=== PATIENT | male | born 1955 | race Two or more races ===

== ENCOUNTER 2025-03-19 07:06 | Inpatient (IN) | payer BC, MEDICARE ==
[~2025-03-19] VITALS: Ht 180.3 cm; Wt 119.8 kg
[2025-03-19] MEDS: LACTATED RINGER'S 2,250 ML IV ONE (07:41)
--- NOTE | 2025-03-19 07:48 | ED.PDOC ---
History of Present Illness HPI Comments 69-year-old male who presents to the ER with prior medical history of hypertension; surgical history of appendectomy and a chief complain of shortness a breath. Patient reports on having sore throat, headache, cough with yellow phlegm, gen weak, loss of appetite for the past one week. Patient reports on small ving similar symptoms in the past and was given medication for it. Patient has a blood pressure of 85/53 and is saturating at 93% on room air. Patient notes that he does live in [place]. Denies chills, fever, N/V/D, CP. No other associated symptoms, modifiers, recent injuries or sick contacts present at this time. Chief Complaint: Shortness of Breath Time Seen by MD: 07:30 Reviewed Notes: Nurses Notes, Medications, Allergies Allergies: Coded Allergies: NO KNOWN ALLERGIES (Unverified , 03/19/25) Information Source: Patient Mode of Arrival: Ambulatory Severity: Moderate Timing: Days Duration: Since onset, Days Prehospital treatment: None Past Medical History PAST MEDICAL HISTORY: High Lipids, HTN Surgical History: Appendectomy Family History Family History: Reviewed,noncontributory to illness, Unknown Social History Smoker: Non-Smoker Alcohol: Denies ETOH Use Drugs: Denies Drug Use Lives In: Home Constitutional: reports: weakness; denies: chills, diaphoresis, fatigue, fever, malaise, sweats, others EENTM: reports: throat swelling; denies: blurred vision, double vision, ear bleeding, ear discharge, ear drainage, ear pain, ear ringing, eye pain, eye redness, hearing loss, mouth pain, mouth swelling, nasal discharge, nose bleeding, nose congestion, nose pain, photophobia, tearing, throat pain, voice changes, others Respiratory: reports: cough, shortness of breath; denies: hemoptysis, orthopnea, SOB at rest, SOB with excertion, stridor, wheezing, others Cardiovascular: denies: chest pain, dizzy spells, diaphoresis, Dyspnea on exertion, edema, irregular heart beat, left arm pain, lightheadedness, palpitations, PND, syncope, others Gastrointestinal: denies: abdomen distended, abdominal pain, blood streaked bowels, constipated, diarrhea, dysphagia, difficulty swallowing, hematemesis, melena, nausea, poor appetite, poor fluid intake, rectal bleeding, rectal pain, vomiting, others Genitourinary: denies: burning, dysuria, flank pain, frequency, hematuria, incontinence, penile discharge, penile sore, pain, testicle pain, testicle swelling, urgency, others Neurological: reports: headache; denies: dizziness, fainting, left sided numbness, left sided weakness, numbness, paresthesia, pre-existing deficit, right sided numbness, right sided weakness, seizure, speech problems, tingling, tremors, weakness, others Musculoskeletal: denies: back pain, gout, joint pain, joint swelling, muscle pain, muscle stiffness, neck pain, others Integumetry: denies: bruises, change in color, change in hair/nails, dryness, laceration, lesions, lumps, rash, wounds, others Allergic/Immunocompromised: denies: Difficulty Healing, Frequent Infections, Hives, Itching, others Hematologic/Lymphatic: denies: anemia, blood clots, easy bleeding, easy bruising, swollen glands, others Endocrine: denies: excessive hunger, excessive sweating, excessive thirst, excessive urination, flushing, intolerance to cold, intolerance to heat, unexplained weight gain, unexplained weight loss, others Psychiatric: denies: anxiety, bipolar disorder, depression, hopeless, panic disorder, schizophrenia, sleepless, suicidal, others All Other Systems: Reviewed and Negative Physical Exam General Appearance: No Apparent Distress, Normal HEENT: Normal ENT Inspection, Pharynx Normal, TMs Normal Neck: Full Range of Motion, Non-Tender, Normal, Normal Inspection Respiratory: Chest Non-Tender, Lungs Clear, No Accessory Muscle Use, No R espiratory Distress, Normal Breath Sounds Cardiovascular: No Edema, No JVD, No Murmur, No Gallop, Normal Peripheral Pulses, Regular Rate/Rhythm Breast Exam: Deferred Gastrointestinal: No Organomegaly, Non Tender, No Pulsatile Mass, Normal Bowel Sounds, Soft Genitalia: Deferred Pelvic: Deferred Rectal: Deferred Extremities: No calf tenderness, Normal capillary refill, Normal inspection, Normal range of motion, Non-tender, No pedal edema Musculoskeletal : Apperance: Normal Neurologic: Alert, first assistant II-XII nml as Tested, No Motor Deficits, Normal Affect, Normal Mood, No Sensory Deficits Cerebellar Function: Normal Reflexes: Normal Skin: Dry, Normal Color, Warm Lymphatic: No Adenopathy Was a procedure done? Was a procedure done?: No EKG EKG : Pulse Rate (adult): 99 Ferguson: Normal Cardiac Rhythm: NSR Block: None Hypertrophy: None ST: Normal Differential Dx Considerations may include: Viral syndrome, ACS, pneumonia, urinary tract infection X-Ray, Labs, Meds, VS Vital Signs Date Time Temp Pulse Resp B/P (MAP) Pulse Ox O2 Delivery O2 Flow Rate FiO2 03/19/25 09:10 99 03/19/25 08:48 85 03/19/25 07:26 Room Air* 0 21 03/19/25 07:25 61/45 (50) 03/19/25 07:24 97.2 99 16 68/39 (49) 97 97.2 03/19/25 07:20 99 03/19/25 07:19 97.2 99 16 68/39 (49) 97 97.2 Lab Test 03/19/25 07:53 Range/Units White Blood Count 10.0 4.4-10.8 10^3/uL Red Blood Count 4.25 L 4.5-5.90 10^6/uL Hemoglobin 13.0 L 13.5-17.5 g/dL Hematocrit 37.4 L 41.0-53.0 % Mean Corpuscular Volume 88.1 80.0-100.0 fL Mean Corpuscular Hemoglobin 30.6 28.0-32.0 pg Mean Corpuscular Hemoglobin Concent 34.7 32.0-36.0 g/dL Red Cell Distribution Width 13.0 11.8-14.3 % Platelet Count 442 140-450 10^3/uL Mean Platelet Volume 8.5 6.9-10.8 fL Neutrophils (%) (Auto) 73.0 37.0-80.0 % Lymphocytes (%) (Auto) 12.3 10.0-50.0 % Monocytes (%) (Auto) 13.0 H 0.0-12.0 % Eosinophils (%) (Auto) 1.3 0.0-7.0 % Basophils (%) (Auto) 0.4 0.0-2.0 % Neutrophils # (Auto) 7.3 1.6-8.6 10 ^3/uL Lymphocytes # (Auto) 1.2 0.4-5.4 10 ^3/uL Monocytes # (Auto) 1.3 0-1.3 10 ^3/uL Eosinophils # (Auto) 0.1 0-0.8 10 ^3/uL Basophils # (Auto) 0 0-0.2 10 ^3/uL Nucleated Red Blood Cells 0.0 % Prothrombin Time 11.0 9.3-11.8 sec Prothrombin Time INR 1.04 0.9-1.15 Activated Partial Thromboplast Time 26.8 24.5-34.5 SEC Sodium Level 138 136-145 mmol/L Potassium Level 3.1 L 3.5-5.1 mmol/L Chloride Level 95 L 98-107 mmol/L Carbon Dioxide Level 28 20-31 mmol/L Anion Gap 15 5-15 Blood Urea Nitrogen 37 H 9-23 mg/dL Creatinine 2.61 H 0.700-1.30 mg/dL Glomerular Filtration Rate Calc 26 >90 mL/min BUN/Creatinine Ratio 14.2 10.0-20.0 Serum Glucose 188 H 74-106 mg/dL Lactic Acid Level 2.5 *H 0.4-2.0 mmol/L Calcium Level 10.1 8.7-10.4 mg/dL Total Bilirubin 0.8 0.2-1.0 mg/dL Aspartate Amino Transferase (AST) 22 13-40 U/L Alanine Aminotransferase (ALT) 30 7-40 U/L Alkaline Phosphatase 158 H 46-116 U/L Total Protein 8.3 H 5.7-8.2 g/dL Albumin 4.8 3.2-4.8 g/dL Current Medications Medications (Trade) Dose Ordered Sig/Gabriela Route Start Time Stop Time Status Last Admin Lactated Ringer's 2,250 ml @ 2,250 mls/hr ONCE ONCE IV 03/19/25 07:45 03/19/25 08:44 DC 03/19/25 07:41 Vancomycin HCl 200 ml @ 200 mls/hr ONCE ONCE IV 03/19/25 07:45 03/19/25 08:44 DC 03/19/25 09:02 Time of 1ST Reevaluation: 08:00 Reevaluation 1ST: Unchanged Patient Education/Counseling: Diagnosis, Treatment, Prognosis Family Education/Counseling: No Family Present Sepsis Sepsis Reasesment Focused Exam Orders: Laboratory Tests 03/19/25 07:53: Lactic Acid Level 2.5 Departure 1 Departure Time of Disposition: 09:25 (Patient presents with weakness, hypotension, and generally feeling unwell. We will treat patient with fluids empirically cover patient with antibiotics and admit patient for further workup. After patient's initial fluid bolus patient's blood pressures improved.) Impression: Primary Impression: Shortness of breath Additional Impression: Suspected sepsis Disposition: ADMITTED INPATIENT Admit to: Med Surg Condition: Guarded Critical Care Note Critical Care Time?: Yes Critical care comment: Hypotension Authorized and Performed by: Ashley Tsai MD Total critical care time: Approximately 44 minutes Due to a high probability of clinically significant, life threatening deterioration, the patient required my highest level of preparedness to intervene emergently and I personally spent this critical care time directly and personally managing the patient. This critical care time included obtaining a history; examining the patient; pulse oximetry; ordering and review of studies; arranging urgent treatment with development of a management plan; evaluation of patient's response to treatment; frequent reassessment; and, discussions with other providers. This critical care time was performed to assess and manage the high probability of imminent, life-threatening deterioration that could result in multi-organ failure. It was exclusive of separately billable procedures and treating other patients and teaching time. Please see my other sections and the rest of the note for further information on patient assessment and treatment. Stability Stability form required: No I personally scribed for ASHLEY TSAI MD ([email or web address]) on 03/19/25 at 07:48. Electronically submitted by Luis Savage ([employer]). I personally scribed for ASHLEY TSAI MD ([email or web address]) on 03/19/25 at 09:10. Electronically submitted by Luis Savage ([employer]). ASHLEY TSAI MD Mar 19, 2025 07:48
[2025-03-19 08:06] LABS: Basophils # (auto) 0 10 ^3/uL (0-0.2); Basophils % (auto) 0.4 % (0.0-2.0); Eosinophils # (auto) 0.1 10 ^3/uL (0-0.8); Eosinophils % (auto) 1.3 % (0.0-7.0); Hematocrit 37.4 % (41.0-53.0); Lymphocytes # (auto) 1.2 10 ^3/uL (0.4-5.4); Lymphocytes % (auto) 12.3 % (10.0-50.0); Mean Corpuscular Hemoglobin 30.6 pg (28.0-32.0); Mean Corpuscular Hgb Conc. 34.7 g/dL (32.0-36.0); Mean Corpuscular Volume 88.1 fL (80.0-100.0); Monocytes # (auto) 1.3 10 ^3/uL (0-1.3); Neutrophils # (auto) 7.3 10 ^3/uL (1.6-8.6); Platelet Count (auto) 442 10^3/uL (140-450); Red Blood Cells 4.25 10^6/uL (4.5-5.90)
[2025-03-19 08:21] LABS: INR 1.04 (0.9-1.15); Partial Thromboplastin Time 26.8 SEC (24.5-34.5)
--- NOTE | 2025-03-19 08:22 | DVH ---
EXAM: XY CHEST PORTABLE HISTORY: sob COMPARISON: None TECHNIQUE: Portable upright AP view of the chest was performed. FINDINGS: No pneumothorax, consolidative infiltrates, or pulmonary edema. There is a calcified granuloma in the left mid lung. The heart is not enlarged. The aortic arch is calcific. IMPRESSION: No acute intrathoracic process.
[2025-03-19 08:24] LABS: Alanine Aminotransferase 30 U/L (7-40); Anion Gap 15 (5-15); Aspartate Aminotransferase 22 U/L (13-40); BUN/Creatinine Ratio 14.2 (10.0-20.0); Calcium 10.1 mg/dL (8.7-10.4); Carbon Dioxide 28 mmol/L (20-31); Sodium 138 mmol/L (136-145)
[2025-03-19 08:25] LABS: Albumin 4.8 g/dL (3.2-4.8); Alkaline Phosphatase 158 U/L (46-116); Bilirubin, Total 0.8 mg/dL (0.2-1.0); Blood Urea Nitrogen 37 mg/dL (9-23); Chloride 95 mmol/L (98-107); Glucose 188 mg/dL (74-106); Potassium 3.1 mmol/L (3.5-5.1); Total Protein 8.3 g/dL (5.7-8.2)
[2025-03-19 08:32] LABS: Lactic Acid w/Reflex 2.5 mmol/L (0.4-2.0)
[2025-03-19] MEDS: VANCOMYCIN 1GM/200ML PM 200 ML IV ONE (09:02)
[2025-03-19] MEDS ORDERED: ACETAMINOPHEN 325 MG TAB PO PRN ×2 (10:00→10:15)
[2025-03-19] MEDS ORDERED: HYDROcodone-ACET 5/325MG TAB PO PRN ×2 (10:00→10:15)
[2025-03-19] MEDS ORDERED: ONDANSETRON HCL 4 MG/2 ML VIAL IV PRN ×2 (10:00→10:15)
[2025-03-19] MEDS ORDERED: NITROGLYCERIN 0.4 MG SL TAB SL PRN ×2 (10:00→10:15)
[2025-03-19] MEDS ORDERED: MORPHINE SULFATE INJ 2 MG/ml SYRG IV PRN ×4 (10:00→10:15)
[2025-03-19] MEDS ORDERED: DOCUSATE SOD 100 MG CAP PO PRN ×2 (10:00→10:15)
[2025-03-19] MEDS ORDERED: VALS1TAB59 PO (10:01)
[2025-03-19] MEDS ORDERED: CHLO25TA2 PO (10:01)
[2025-03-19] MEDS ORDERED: ROSU10TA64 PO (10:01)
--- NOTE | 2025-03-19 10:12 | DVHHP2 ---
History of Present Illness Reason for Visit: Shortness of breath History of Present Illness MineralMendel is a 69-uear-old male with past medication history of hypertension, and hyperlipidemia who came to the hospital for shortness of breath. Patient states he had an upper respiratory tract infection about a week ago. He was given antibiotics, and states he was feeling a little better, but then worsened. He states he fatigue and malaise have been debilitating the last few days. Also states he has had shortness of breath, cough with yellow phlegm, headache, and sore throat. Patient states he drinks about 5 beers/day. His last beer was last Wednesday03/12/2025 due to him being sick. 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 His primary care provider remains in [place]. Cardiovascular: HTN, hyperipidemia Past Surgical History: Appendectomy Smoke: No ALCOHOL: heavy Drugs: None Lives: Alone Domestic Violence: Neg Review of Systems Constitutional: Yes: Sweats, Weakness, Malaise, Other (headache); No: Fever, Chills Eyes: No: Pain, Vision change, Conjunctivae inflammation, Eyelid inflammation, Other, Redness ENT: No: Ear pain, Ear discharge, Nose pain, Nose discharge, Nose congestion, Mouth pain, Mouth swelling, Throat pain, Throat swelling, Other Respiratory: Cough, Shortness of breath, SOB with excertion, Sputum (yellow); No: Dry, Wheezing, Hemoptysis, Pleuritic Pain, Wheezing, Other Cardiovascular: No: Chest Pain, Palpitations, Orthopnea, Paroxysmal Noc. Dyspnea, Edema, Lt Headedness, Other Gastrointestinal: No: Nausea, Vomiting, Abdominal Pain, Diarrhea, Constipation, Melena, Hematochezia, Other Genitourinary: No Dysuria, No Frequency, No Incontinence, No Hematuria, No Retention, No Other Musculoskeletal: No: other, neck pain, shoulder pain, arm pain, back pain, hand pain, leg pain, foot pain Skin: No: Rash, Lesions, Jaundice, Bruising, Other Neurological: No: Weakness, Numbness, Incoordination, Change in speech, Confusion, Seizures, Other Allergies: Coded Allergies: NO KNOWN ALLERGIES (Unverified , 03/19/25) Medications Current Medications Medications Dose Ordered Sig/Gabriela Route Start Time Stop Time Status Last Admin Dose Admin Cefepime HCl 50 ml @ 12.5 mls/hr Q8HR IV 03/19/25 14:00 Acetaminophen/ Hydrocodone Bitart 1 tab Q4HP PRN PO 03/19/25 10:00 UNV Ondansetron HCl 4 mg Q4HP PRN IV 03/19/25 10:00 UNV Docusate Sodium 100 mg BIDPRN PRN PO 03/19/25 10:00 UNV Acetaminophen 650 mg Q6HP PRN PO 03/19/25 10:00 UNV Morphine Sulfate 2 mg Q4HPRN PRN IV 03/19/25 10:00 UNV Nitroglycerin 0.4 mg Q5MINP PRN SL 03/19/25 10:00 UNV Morphine Sulfate 2 mg Q30M PRN IV 03/19/25 10:00 UNV Exam Vital Signs Vital Signs Date Time Temp Pulse Resp B/P (MAP) Pulse Ox O2 Delivery O2 Flow Rate FiO2 03/19/25 09:10 99 03/19/25 07:26 Room Air* 0 21 03/19/25 07:25 61/45 (50) 03/19/25 07:24 97.2 16 97 97.2 General Appearance: Alert, Oriented X3, Cooperative, moderate distress HEENT: Atraumatic, PERRLA Respiratory: Other (Diminished breath sounds, wet cough) Cardiovascular: Normal S1, Normal S2, Other (SR-ST) Abdominal: Normal bowel sounds, Soft, No tenderness, No hepatospenomegaly Extremities: No clubbing, No cyanosis, No edema, Normal pulses Skin: No rashes, No breakdown, No significant lesion Neuro: Normal speech Psych/Mental Status: Mental status NL, Mood NL Labs/Xrays Labs Test 03/19/25 07:53 Range/Units White Blood Count 10.0 4.4-10.8 10^3/uL Red Blood Count 4.25 L 4.5-5.90 10^6/uL Hemoglobin 13.0 L 13.5-17.5 g/dL Hematocrit 37.4 L 41.0-53.0 % Mean Corpuscular Volume 88.1 80.0-100.0 fL Mean Corpuscular Hemoglobin 30.6 28.0-32.0 pg Mean Corpuscular Hemoglobin Concent 34.7 32.0-36.0 g/dL Red Cell Distribution Width 13.0 11.8-14.3 % Platelet Count 442 140-450 10^3/uL Mean Platelet Volume 8.5 6.9-10.8 fL Neutrophils (%) (Auto) 73.0 37.0-80.0 % Lymphocytes (%) (Auto) 12.3 10.0-50.0 % Monocytes (%) (Auto) 13.0 H 0.0-12.0 % Eosinophils (%) (Auto) 1.3 0.0-7.0 % Basophils (%) (Auto) 0.4 0.0-2.0 % Neutrophils # (Auto) 7.3 1.6-8.6 10 ^3/uL Lymphocytes # (Auto) 1.2 0.4-5.4 10 ^3/uL Monocytes # (Auto) 1.3 0-1.3 10 ^3/uL Eosinophils # (Auto) 0.1 0-0.8 10 ^3/uL Basophils # (Auto) 0 0-0.2 10 ^3/uL Nucleated Red Blood Cells 0.0 % Prothrombin Time 11.0 9.3-11.8 sec Prothrombin Time INR 1.04 0.9-1.15 Activated Partial Thromboplast Time 26.8 24.5-34.5 SEC Sodium Level 138 136-145 mmol/L Potassium Level 3.1 L 3.5-5.1 mmol/L Chloride Level 95 L 98-107 mmol/L Carbon Dioxide Level 28 20-31 mmol/L Anion Gap 15 5-15 Blood Urea Nitrogen 37 H 9-23 mg/dL Creatinine 2.61 H 0.700-1.30 mg/dL Glomerular Filtration Rate Calc 26 >90 mL/min BUN/Creatinine Ratio 14.2 10.0-20.0 Serum Glucose 188 H 74-106 mg/dL Lactic Acid Level 2.5 *H 0.4-2.0 mmol/L Calcium Level 10.1 8.7-10.4 mg/dL Total Bilirubin 0.8 0.2-1.0 mg/dL Aspartate Amino Transferase (AST) 22 13-40 U/L Alanine Aminotransferase (ALT) 30 7-40 U/L Alkaline Phosphatase 158 H 46-116 U/L Total Protein 8.3 H 5.7-8.2 g/dL Albumin 4.8 3.2-4.8 g/dL EXAM: XY CHEST PORTABLE FINDINGS: No pneumothorax, consolidative infiltrates, or pulmonary edema. There is a calcified granuloma in the left mid lung. The heart is not enlarged. The aortic arch is calcific. IMPRESSION: No acute intrathoracic process. Assessment/Plan Assessment/Plan Assessment: Suspected sepsis, Possible pneumonia, Lactic acidosis, Hypotension, Obesity, Hyperlipidemia, Plan: Admit to [facility], IV antibiotics, IV hydration, IV steroids, Breathing treatments, Sputum culture, Blood cultures, Home BP medications held due to hypotension, A1c, COVID and influenza A&B swab, Plan discussed with: Patient My Orders Orders - CARL ARGUELLES Procedure Category Date Status Time Admit ADMIT 03/19/25 Transmitted 09:57 Code Status CODE 03/19/25 Transmitted 09:57 2 Gm Sodium Diet DIET 03/19/25 Transmitted Lunch Hydrocodone-Acet PHA 03/19/25 Logged 5/325mg Tab ([place] 10:00 Ondansetron Hcl PHA 03/19/25 Logged (Zofran) 10:00 Docusate Sodium PHA 03/19/25 Logged Capsule (Colace 10:00 Complete Blood Count LAB 03/20/25 Verified 04:00 Comprehensive LAB 03/20/25 Verified Metabolic Panel 04:00 Condition: Serious RAVI 03/19/25 In Process 09:57 Acetaminophen Tablet PHA 03/19/25 Logged (Tylenol Tablet) 10:00 Morphine Sulfate PHA 03/19/25 Logged Injection 10:00 Nitroglycerin PHA 03/19/25 Logged Sublingual (Ntrostat 10:00 Morphine Sulfate PHA 03/19/25 Logged Injection 10:00 Stat Ekg For Chest RAVI 03/19/25 In Process Pain 09:57 Notify Md Of Changes RAVI 03/19/25 In Process From Base 09:57 [employer]els [employer] Superintendent For RAVI 03/19/25 In Process 24 Hours 09:57 Emergency Dysrhythmia RAVI 03/19/25 In Process Protocol 09:57 Rhythm Strips Once RAVI 03/19/25 In Process Every Shift 09:57 Oxygen By Nasal RT 03/19/25 Transmitted Cannula 09:57 (Nf) Rosuvastatin PHA 03/20/25 Transmitted Calcium 10:00 Date of Service: Mar 19, 2025 Billing Provider: CARL ARGUELLES Common Visit Codes: [id number] INP/OBS CARE (HIGH) CARL ARGUELLES Mar 19, 2025 10:12
[2025-03-19] MEDS ORDERED: MORPHINE SULFATE 4 MG/ML SYR/VIAL IV PRN ×2 (11:00)
[2025-03-19 11:25] LABS: COVID19 ANTIGEN SOFIA FIA NEGATIVE (NEGATIVE); Rapid Influenza A Negative (Negative); Rapid Influenza B Negative (Negative)
[2025-03-19 13:30] VITALS: BP 102/59; PULSE 72; RESP 20; TEMP 97.5; O2SAT 95
[2025-03-19 13:58] VITALS: RESP 16
[2025-03-19] MEDS ORDERED: CEFEPIME 1GM/ 50ML 50 ML IV SCH (14:00)
[2025-03-19] MEDS: SODIUM CHLORIDE 0.9% 1,000 ML IV ONE (15:12)
[2025-03-19 17:00] VITALS: BP 100/56; PULSE 75; RESP 20; TEMP 98; O2SAT 94
[2025-03-19] MEDS ORDERED: THROAT LOZENGES(CEPASTAT) MT PRN (17:45)
[2025-03-19] MEDS: guaiFENesin-DM 100/10mg/5ml SYR PO PRN (17:50)
[2025-03-19] MEDS: CIPROFLOXACIN 0.3%OPTH(EYE) SOL 5ML EACHEYE SCH (18:21)
[2025-03-19 20:00] VITALS: PULSE 73; PULSE 74; RESP 18; O2SAT 94
[2025-03-19 21:00] VITALS: BP 96/62; PULSE 74; RESP 18; TEMP 98.5; O2SAT 94
[2025-03-19] MEDS: ATORVASTATIN 20 MG TAB PO SCH (22:28)
[2025-03-19] MEDS: CEFEPIME 1GM/ 50ML 50 ML IV SCH (22:29)
[2025-03-20] VITALS (12 sets, daily range): BP systolic 97–121; BP diastolic 56–73; PULSE 65–82; RESP 16–19; TEMP 98–98.6; O2SAT 91–100
[2025-03-20 06:46] LABS: Basophils # (auto) 0 10 ^3/uL (0-0.2); Basophils % (auto) 0.3 % (0.0-2.0); Eosinophils # (auto) 0.2 10 ^3/uL (0-0.8); Eosinophils % (auto) 2.3 % (0.0-7.0); Hematocrit 35.6 % (41.0-53.0); Hemoglobin 12.2 g/dL (13.5-17.5); Lymphocytes # (auto) 1.4 10 ^3/uL (0.4-5.4); Lymphocytes % (auto) 14.5 % (10.0-50.0); Mean Corpuscular Hemoglobin 30.2 pg (28.0-32.0); Mean Corpuscular Hgb Conc. 34.3 g/dL (32.0-36.0); Mean Corpuscular Volume 88.1 fL (80.0-100.0); Monocytes # (auto) 1.5 10 ^3/uL (0-1.3); Monocytes % (auto) 15.2 % (0.0-12.0); Neutrophils # (auto) 6.7 10 ^3/uL (1.6-8.6); Neutrophils % (auto) 67.7 % (37.0-80.0); Platelet Count (auto) 369 10^3/uL (140-450); Red Blood Cells 4.04 10^6/uL (4.5-5.90); White Blood Cell 9.8 10^3/uL (4.4-10.8)
[2025-03-20 06:49] LABS: Urine Bacteria None Seen /hpf (None Seen)
[2025-03-20 06:56] LABS: Alanine Aminotransferase 33 U/L (7-40); Albumin 4.3 g/dL (3.2-4.8); Anion Gap 11 (5-15); BUN/Creatinine Ratio 21.2 (10.0-20.0); Calcium 9.3 mg/dL (8.7-10.4); Carbon Dioxide 28 mmol/L (20-31); Total Protein 7.4 g/dL (5.7-8.2)
[2025-03-20 06:58] LABS: Bilirubin, Total 0.7 mg/dL (0.2-1.0)
[2025-03-20 07:03] LABS: Alkaline Phosphatase 181 U/L (46-116); Blood Urea Nitrogen 32 mg/dL (9-23); Chloride 96 mmol/L (98-107); Glucose 114 mg/dL (74-106); Potassium 2.9 mmol/L (3.5-5.1); Sodium 135 mmol/L (136-145)
[2025-03-20 07:06] LABS: Urine Blood Negative /uL (Negative); Urine Clarity Clear (Clear); Urine Color Yellow (Yellow); Urine Hyaline Cast FEW /lpf (0 - 2); Urine Protein, UAD TRACE (Negative); Urine Specific Gravity 1.019 (1.001-1.035); Urine Squamous Epithelial Cell FEW /hpf (<5); Urine Urobilinogen Normal (Negative); Urine WBC 2 /HPF (0-3)
[2025-03-20 07:26] LABS: Aspartate Aminotransferase 29 U/L (13-40)
[2025-03-20] MEDS ORDERED: PATIENTS OWN MEDICATION (Rosuvastatin Calcium 1 TAB) PO SCH ×2 (10:00)
--- NOTE | 2025-03-20 11:07 | ECG ---
[facility] Test Date: 2025-03-19 Test Time: 07:20:48 Pat Name: JOGN PAYNE Department: ER Room: 0250 Gender: M [employer]: ROSHAN : 1955 Requested By: ASHLEY LOZA Order Number: [id number] Reading MD: Sincere Cid Measurements Intervals [place] Rate: 99 P: -84 HI: 186 QRS: -16 QRSD: 105 T: 51 QT: 373 QTc: 479 Interpretive Statements Sinus or ectopic atrial rhythm Left ventricular hypertrophy Nonspecific T abnormalities, lateral leads Borderline prolonged QT interval Baseline wander in lead(s) V1 Electronically Signed On 03-21-2025 20:57:49 PDT by Sincere Cid Please click the below link to view image of tracing.
--- NOTE | 2025-03-20 12:26 | DVHPN2 ---
Progress Note Date Seen: Mar 20, 2025 Medical Necessity Reason Pt with a Central, PICC or Fol: No Subjective Patient reports: No new complaints Review of Systems: HEENT:Normal, CVS:Normal, RESPIRATORY:Normal, GI:Normal, :Normal, MSK:Normal, NEURO:Normal Objective vital signs Vital Sign Date Time Temp Pulse Resp B/P (MAP) Pulse Ox O2 Delivery O2 Flow Rate FiO2 03/20/25 09:00 98.2 67 17 121/59 (79) 93 98.2 03/20/25 07:45 Room Air* 0 21 Total Intake and Output 03/19/25 03/19/25 03/20/25 15:00 23:00 07:00 Intake Total 240 ml 1090 ml 250 ml Balance 240 ml 1090 ml 250 ml medications Current Medications Medications Dose Ordered Sig/Gabriela Route Start Time Stop Time Status Last Admin Dose Admin Ondansetron HCl 4 mg Q4HP PRN IV 03/19/25 10:15 Morphine Sulfate 2 mg Q4HPRN PRN IV 03/19/25 10:15 UNV Morphine Sulfate 2 mg Q30M PRN IV 03/19/25 10:15 UNV Acetaminophen/ Hydrocodone Bitart 1 tab Q4HP PRN PO 03/19/25 10:15 Docusate Sodium 100 mg BIDPRN PRN PO 03/19/25 10:15 Acetaminophen 650 mg Q6HP PRN PO 03/19/25 10:15 Nitroglycerin 0.4 mg Q5MINP PRN SL 03/19/25 10:15 Patient Own Medication 1 tab DAILY PO 03/20/25 10:00 UNV Atorvastatin Calcium 40 mg HS PO 03/19/25 22:00 03/19/25 22:28 40 MG Morphine Sulfate 2 mg Q4HPRN PRN IV 03/19/25 11:00 Morphine Sulfate 2 mg Q30M PRN IV 03/19/25 11:00 Cefepime HCl 50 ml @ 12.5 mls/hr Q12HR IV 03/19/25 22:00 03/20/25 09:25 12.5 MLS/HR Ciprofloxacin HCl 1 drop Q4HWA EACHEYE 03/19/25 18:00 03/29/25 17:59 03/20/25 09:25 1 DROP Guaifenesin/ Dextromethorphan 10 ml Q4HP PRN PO 03/19/25 17:45 03/19/25 17:50 10 ML Throat Lozenges 1 jackie Q2HP PRN MT 03/19/25 17:45 Examination: GENERAL:Normal, HEENT:Normal, NECK:Normal, LUNGS:Normal, CVS:Normal, ABDOMEN:Normal, MSK:Normal, SKIN:Normal, NEURO:Normal, :Normal laboratory and microbiology Laboratory Tests 03/20/25 06:04 Test 03/20/25 06:04 Range/Units Serum Glucose 114 H 74-106 mg/dL Microbiology Date/Time Source Procedure Growth Status 03/19/25 07:53 Blood Blood Culture - Preliminary NO GROWTH AFTER 24 HOURS OF INCUBATION. Resulted Problem List/Assessment/Plan Problem List/Assessment/Plan #1 ?pneumonia: iv antibiotics, ct chest #2 acute renal failure ?vasomotor nephropathy: ivf #3 obesity #4 hypokalemia: replace #5 ? acute systolic/diastolic heart failure: echo advance care planning- full code- time spent 19 mins Plan discussed with: Patient My Orders My Orders Orders - HERB MASCORRO MD Procedure Category Date Status Time Coccidioides Immitis LAB 03/20/25 Verified Antibody 12:[address] 03/20/25 Verified 12:16 Potassium Chl Hank PHA 03/20/25 Verified KCL 12:30 NS PHA 03/20/25 Verified 12:30 Date of Service: Mar 20, 2025 Billing Provider: HERB MASCORRO MD Common Visit Codes: [id number] INP/OBS CARE(HIGH) Secondary Visit Codes: [id number] CARE PLAN 30 MINUTES HERB MASCORRO MD Mar 20, 2025 12:26
--- NOTE | 2025-03-20 13:18 | DVH ---
Procedure: CT CHEST WITHOUT CONTRAST Reason for study/Clinical History: pneumonia Comparison Study: Chest x-ray obtained yesterday Exam Date: 03/20/2025 12:38 PM TECHNIQUE: Multidetector CT of the chest was performed from the lung apices to the upper abdomen with out the use of intravenous contract. Axial, coronal and sagittal multiplanar reformats were performed . Radiation Dose Information: CT Dose: CTDI volume is 24.14 mGy. Dose-length product is 915.18 mGy*cm The dose indicators for CT are the volume Computed Tomography (CT) Dose Index (CTDIvol) and the Dose Length Product (DLP), and are measured in units of mGy and mGy-cm, respectively. These indicators are not patient dose, but values generated from the CT scanner acquisition factors. The report includes radiation exposure data for exposures received during this examination. FINDINGS: Lower neck: Normal thyroid. Lungs: Multifocal pneumonia throughout both lungs, most prominent in the left lower lobe Heart/Vascular Structures: Normal heart size. No pericardial effusion. Lymph Nodes: Mediastinal lymphadenopathy, likely reactive Pleura: No pleural effusion or significant pneumothorax. Musculoskeletal: No acute osseous abnormality. Soft tissues: Normal. Upper abdomen: Limited portions of the upper abdomen are unremarkable. IMPRESSION: 1. Multifocal pneumonia throughout both lungs, most prominent in the left lower lobe. 2. Mediastinal lymphadenopathy, likely reactive Radiation optimization: All CT scans at this facility use at least one of these dose optimization mary hniques: automated exposure control mA and/or kV adjustment per patient size (includes targeted exam s where dose is matched to clinical indication) or iterative reconstruction.
[2025-03-20] MEDS: SODIUM CHLORIDE 0.9% 1,000 ML IV SCH (13:59)
[2025-03-20] MEDS: POTASSIUM CHLORIDE 40 MEQ, LIDOCAINE 1% (LOCAL ANESTH.) 4 ML in SODIUM CHL 0.9% 250 ML IV ONE (13:59)
[2025-03-20] MEDS: IPRATROPIUM BROM 0.5 MG/2.5ML INH SOL NEB SCH (19:19)
[2025-03-20] MEDS: ALBUTEROL SULF 2.5 MG/0.5ML(0.5%) NEB SOLN NEB SCH (19:19)
[2025-03-21] VITALS (14 sets, daily range): BP systolic 91–138; BP diastolic 51–70; PULSE 60–78; RESP 18–19; TEMP 97.8–99.3; O2SAT 90–100
[2025-03-21 07:00] LABS: Basophils # (auto) 0 10 ^3/uL (0-0.2); Basophils % (auto) 0.3 % (0.0-2.0); Eosinophils # (auto) 0.3 10 ^3/uL (0-0.8); Eosinophils % (auto) 2.6 % (0.0-7.0); Hematocrit 33.9 % (41.0-53.0); Hemoglobin 11.7 g/dL (13.5-17.5); Lymphocytes # (auto) 1.7 10 ^3/uL (0.4-5.4); Mean Corpuscular Hemoglobin 30.5 pg (28.0-32.0); Mean Corpuscular Hgb Conc. 34.4 g/dL (32.0-36.0); Mean Corpuscular Volume 88.5 fL (80.0-100.0); Monocytes # (auto) 1.4 10 ^3/uL (0-1.3); Monocytes % (auto) 12.5 % (0.0-12.0); Neutrophils # (auto) 7.7 10 ^3/uL (1.6-8.6); Neutrophils % (auto) 69.6 % (37.0-80.0); Platelet Count (auto) 388 10^3/uL (140-450); Red Blood Cells 3.83 10^6/uL (4.5-5.90); Red Cell Distribution Width 13.1 % (11.8-14.3)
[2025-03-21 07:11] LABS: Anion Gap 9 (5-15); Carbon Dioxide 31 mmol/L (20-31); Chloride 100 mmol/L (98-107); Potassium 3.3 mmol/L (3.5-5.1); Sodium 140 mmol/L (136-145)
[2025-03-21 07:12] LABS: Calcium 10.1 mg/dL (8.7-10.4)
[2025-03-21 07:17] LABS: BUN/Creatinine Ratio 15.4 (10.0-20.0); Blood Urea Nitrogen 18 mg/dL (9-23); Glucose 115 mg/dL (74-106)
--- NOTE | 2025-03-21 15:28 | DVHPN2 ---
Progress Note Date Seen: Mar 21, 2025 Medical Necessity Reason Pt with a Central, PICC or Fol: No Subjective Patient reports: No new complaints Review of Systems: HEENT:Normal, CVS:Normal, RESPIRATORY:Normal, GI:Normal, :Normal, MSK:Normal, NEURO:Normal Objective vital signs Vital Sign Date Time Temp Pulse Resp B/P (MAP) Pulse Ox O2 Delivery O2 Flow Rate FiO2 03/21/25 13:00 97.8 62 19 91/51 (64) 93 97.8 03/21/25 11:14 Room Air* 0 21 Total Intake and Output 03/20/25 03/20/25 03/21/25 15:00 23:00 07:00 Intake Total 650 ml 1800 ml 600 ml Balance 650 ml 1800 ml 600 ml medications Current Medications Medications Dose Ordered Sig/Gabriela Route Start Time Stop Time Status Last Admin Dose Admin Ondansetron HCl 4 mg Q4HP PRN IV 03/19/25 10:15 Morphine Sulfate 2 mg Q4HPRN PRN IV 03/19/25 10:15 UNV Morphine Sulfate 2 mg Q30M PRN IV 03/19/25 10:15 UNV Acetaminophen/ Hydrocodone Bitart 1 tab Q4HP PRN PO 03/19/25 10:15 Docusate Sodium 100 mg BIDPRN PRN PO 03/19/25 10:15 Acetaminophen 650 mg Q6HP PRN PO 03/19/25 10:15 Nitroglycerin 0.4 mg Q5MINP PRN SL 03/19/25 10:15 Patient Own Medication 1 tab DAILY PO 03/20/25 10:00 UNV Atorvastatin Calcium 40 mg HS PO 03/19/25 22:00 03/20/25 22:14 40 MG Morphine Sulfate 2 mg Q4HPRN PRN IV 03/19/25 11:00 Morphine Sulfate 2 mg Q30M PRN IV 03/19/25 11:00 Cefepime HCl 50 ml @ 12.5 mls/hr Q12HR IV 03/19/25 22:00 03/21/25 10:34 12.5 MLS/HR Ciprofloxacin HCl 1 drop Q4HWA EACHEYE 03/19/25 18:00 03/29/25 17:59 03/21/25 10:34 1 DROP Guaifenesin/ Dextromethorphan 10 ml Q4HP PRN PO 03/19/25 17:45 03/19/25 17:50 10 ML Throat Lozenges 1 jackie Q2HP PRN MT 03/19/25 17:45 Sodium Chloride 1,000 ml @ 75 mls/hr [id number] IV 03/20/25 12:30 03/21/25 10:34 75 MLS/HR Albuterol 2.5 mg Q6HWA NEB 03/20/25 18:00 03/21/25 11:14 2.5 MG Ipratropium [place] 0.5 mg Q6HWA NEB 03/20/25 18:00 03/21/25 11:14 0.5 MG Examination: GENERAL:Normal, HEENT:Normal, NECK:Normal, LUNGS:Normal, CVS:Normal, ABDOMEN:Normal, MSK:Normal, SKIN:Normal, NEURO:Normal, :Normal laboratory and microbiology Laboratory Tests 03/21/25 06:23 Test 03/21/25 06:23 Range/Units Serum Glucose 115 H 74-106 mg/dL Microbiology Date/Time Source Procedure Growth Status 03/20/25 06:30 Sputum Gram Stain - Final Resulted 03/20/25 06:30 Sputum Respiratory Culture - Preliminary Resulted 03/19/25 07:53 Blood Blood Culture - Preliminary NO GROWTH AFTER 48 HOURS OF INCUBATION. Resulted Problem List/Assessment/Plan Problem List/Assessment/Plan #1 ?pneumonia: iv antibiotics, ? valley fever: start iv fluconazole #2 acute renal failure ?vasomotor nephropathy: improved #3 obesity #4 hypokalemia: replace #5 ? acute systolic/diastolic heart failure: echo advance care planning- full code- time spent 19 mins Plan discussed with: Patient, Spouse Dietary Evaluation Review Comments: Monitor PO intake to meet 75% of his needs Expected Outcomes/Goals: gradual wt loss. avoid overeating and avoid uremic symptoms. Date of Service: Mar 21, 2025 Billing Provider: HERB MASCORRO MD Common Visit Codes: [id number] INP/OBS CARE(HIGH) Secondary Visit Codes: [id number] CARE PLAN 30 MINUTES HERB MASCORRO MD Mar 21, 2025 15:28
[2025-03-21] MEDS: FLUCONAZOLE 200MG/100ML 100 ML IV SCH (16:33)
[2025-03-22] VITALS (15 sets, daily range): BP systolic 93–106; BP diastolic 55–66; PULSE 60–73; RESP 17–19; TEMP 97.6–98.6; O2SAT 91–100
--- NOTE | 2025-03-22 05:05 | DVH ---
EXAM: XR Chest, 1 View CLINICAL INDICATION: PNEUMONIA TECHNIQUE: Frontal view of the chest. COMPARISON: None FINDINGS: LUNGS AND PLEURAL SPACES: Unremarkable. No consolidation. No pneumothorax. HEART: Unremarkable. No cardiomegaly. MEDIASTINUM: Unremarkable. Normal mediastinal contour. BONES/JOINTS: Unremarkable. No acute fracture. OTHER FINDINGS: . IMPRESSION: No acute cardiopulmonary process.
[2025-03-22 06:57] LABS: Anion Gap 11 (5-15); Calcium 9.4 mg/dL (8.7-10.4); Carbon Dioxide 29 mmol/L (20-31); Chloride 99 mmol/L (98-107); Sodium 139 mmol/L (136-145)
[2025-03-22 06:59] LABS: Potassium 3.1 mmol/L (3.5-5.1)
[2025-03-22 07:03] LABS: BUN/Creatinine Ratio 17.2 (10.0-20.0); Blood Urea Nitrogen 16 mg/dL (9-23)
[2025-03-22 07:04] LABS: Glucose 115 mg/dL (74-106)
[2025-03-22 07:11] LABS: Basophils # (auto) 0 10 ^3/uL (0-0.2); Basophils % (auto) 0.3 % (0.0-2.0); Eosinophils # (auto) 0.3 10 ^3/uL (0-0.8); Eosinophils % (auto) 2.3 % (0.0-7.0); Hematocrit 34.3 % (41.0-53.0); Hemoglobin 11.8 g/dL (13.5-17.5); Lymphocytes # (auto) 1.8 10 ^3/uL (0.4-5.4); Mean Corpuscular Hemoglobin 29.9 pg (28.0-32.0); Mean Corpuscular Hgb Conc. 34.3 g/dL (32.0-36.0); Mean Corpuscular Volume 87.1 fL (80.0-100.0); Monocytes # (auto) 1.5 10 ^3/uL (0-1.3); Monocytes % (auto) 11.3 % (0.0-12.0); Neutrophils # (auto) 9.4 10 ^3/uL (1.6-8.6); Neutrophils % (auto) 72.1 % (37.0-80.0); Platelet Count (auto) 409 10^3/uL (140-450); Red Blood Cells 3.94 10^6/uL (4.5-5.90)
[2025-03-22] MEDS: FLUCONAZOLE 200MG/100ML 100 ML IV SCH (09:45)
--- NOTE | 2025-03-22 11:04 | DVHPN2 ---
Progress Note Date Seen: Mar 22, 2025 Medical Necessity Reason Pt with a Central, PICC or Fol: No Subjective Patient reports: No new complaints Review of Systems: HEENT:Normal, CVS:Normal, RESPIRATORY:Normal, GI:Normal, :Normal, MSK:Normal, NEURO:Normal Objective vital signs Vital Sign Date Time Temp Pulse Resp B/P (MAP) Pulse Ox O2 Delivery O2 Flow Rate FiO2 03/22/25 08:51 97.9 68 18 97/63 (74) 93 97.9 03/22/25 07:20 Room Air 03/22/25 07:20 0 21 Total Intake and Output 03/21/25 03/21/25 03/22/25 15:00 23:00 07:00 Intake Total 450 ml 1000 ml 1250 ml Balance 450 ml 1000 ml 1250 ml medications Current Medications Medications Dose Ordered Sig/Gabriela Route Start Time Stop Time Status Last Admin Dose Admin Ondansetron HCl 4 mg Q4HP PRN IV 03/19/25 10:15 Morphine Sulfate 2 mg Q4HPRN PRN IV 03/19/25 10:15 UNV Morphine Sulfate 2 mg Q30M PRN IV 03/19/25 10:15 UNV Acetaminophen/ Hydrocodone Bitart 1 tab Q4HP PRN PO 03/19/25 10:15 Docusate Sodium 100 mg BIDPRN PRN PO 03/19/25 10:15 Acetaminophen 650 mg Q6HP PRN PO 03/19/25 10:15 Nitroglycerin 0.4 mg Q5MINP PRN SL 03/19/25 10:15 Patient Own Medication 1 tab DAILY PO 03/20/25 10:00 UNV Atorvastatin Calcium 40 mg HS PO 03/19/25 22:00 03/21/25 21:46 40 MG Morphine Sulfate 2 mg Q4HPRN PRN IV 03/19/25 11:00 Morphine Sulfate 2 mg Q30M PRN IV 03/19/25 11:00 Cefepime HCl 50 ml @ 12.5 mls/hr Q12HR IV 03/19/25 22:00 03/22/25 09:45 12.5 MLS/HR Ciprofloxacin HCl 1 drop Q4HWA EACHEYE 03/19/25 18:00 03/29/25 17:59 03/22/25 09:45 1 DROP Guaifenesin/ Dextromethorphan 10 ml Q4HP PRN PO 03/19/25 17:45 03/19/25 17:50 10 ML Throat Lozenges 1 jackie Q2HP PRN MT 03/19/25 17:45 Albuterol 2.5 mg Q6HWA NEB 03/20/25 18:00 03/22/25 07:20 2.5 MG Ipratropium [place] 0.5 mg Q6HWA NEB 03/20/25 18:00 03/22/25 07:20 0.5 MG Fluconazole 100 ml @ 100 mls/hr 10,11 IV 03/22/25 10:00 03/22/25 09:45 100 MLS/HR Examination: GENERAL:Normal, HEENT:Normal, NECK:Normal, LUNGS:Normal, CVS:Normal, ABDOMEN:Normal, MSK:Normal, SKIN:Normal, NEURO:Normal, :Normal laboratory and microbiology Laboratory Tests 03/22/25 06:18 Test 03/22/25 06:18 Range/Units Serum Glucose 115 H 74-106 mg/dL Microbiology Date/Time Source Procedure Growth Status 03/20/25 06:30 Sputum Gram Stain - Final Resulted 03/20/25 06:30 Sputum Respiratory Culture - Preliminary Resulted 03/19/25 07:53 Blood Blood Culture - Preliminary NO GROWTH AFTER 72 HOURS OF INCUBATION. Resulted Problem List/Assessment/Plan Problem List/Assessment/Plan #1 pneumonia: ?legionella ? valley fever: start iv fluconazole, iv levaquin #2 acute renal failure ?vasomotor nephropathy: improved #3 obesity #4 hypokalemia: replace #5 ? acute systolic/diastolic heart failure: echo advance care planning- full code- time spent 19 mins Plan discussed with: Patient My Orders My Orders Orders - HERB MASCORRO MD Procedure Category Date Status Time Discontinue Tele RAVI 03/21/25 In Process 15:24 Transfer Orders XFER 03/21/25 Transmitted 15:24 Fluconazole PHA 03/22/25 In Process 200mg/100ml (Diflucan 10:00 Chest Two Views XY 03/22/25 Resulted Routine 08:00 Levofloxacin Levaquin PHA 03/22/25 Verified 11:00 Dietary Evaluation Review Comments: Monitor PO intake to meet 75% of his needs Expected Outcomes/Goals: gradual wt loss. avoid overeating and avoid uremic symptoms. Date of Service: Mar 22, 2025 Billing Provider: HERB MASCORRO MD Common Visit Codes: [id number] INP/OBS CARE(HIGH) HERB MASCORRO MD Mar 22, 2025 11:04
[2025-03-22] MEDS: POTASSIUM CHL 20 Meq TABLET PO ONE (11:25)
[2025-03-22] MEDS: levoFLOXacin 500MG 100 ML IV ONE (12:39)
[2025-03-22] MEDS: levoFLOXacin 500MG 100 ML IV SCH (13:50)
--- NOTE | 2025-03-22 16:55 | DVHSR ---
APPROVED REPORT EXAM: Two-dimensional and M-mode echocardiogram with Doppler and color Doppler. Blood Pressure: 121/59 mmHg INDICATION Heart Failure RISK FACTORS Height: 5'11", Weight: 268 DIMENSIONS LVDd5.4 (3.8-5.7cm)LA (2D)5.7 (1.9-4.0cm)Aortic Root3.9 (2.0-3.7cm) LVDs2.9 (2.5-4.0cm)LA (MM) (1.9-4.0cm)Aortic Cusp Exc2.7 (1.5-2.0cm) EF (%) 77.0 (55-70%)Rt. Atrium5.5 (1.9-4.0cm)Asc. Aorta4.1 cm IVSd1.3 (0.7-1.1cm)RV (D)5.2 (1.8-2.4cm) Mitral Valve MitralMitral Stenosis E wave0.67m/sMV Mean GR.mmHg A wave0.87m/sMV Peak GR.mmHg E/A ratio0.82D MVAcm2 DECEL [id number] 1/2 Timems Aortic Valve Aortic ValveAortic Stenosis V11.24m/Tal Mean GR.7mmHg V22.12m/Tal Peak GR.18mmHg LVOT Diameter2.6 (1.8-2.4cm)Doppler AVA3.10cm2 Tricuspid Valve TR Velocity2.51m/s [id number] Other Information Quality : Technically LimitedRhythm : Technically limited study due to body habitus. Conclusion Sinus rhythm. Concentric LVH with biatrial enlargement and aortic root enlargement. Valves are normal. EF of 60% with normal RV function. Dopplers unremarkable. Mild TR. No pericardial effusion masses or vegetations.
[2025-03-23] VITALS (14 sets, daily range): BP systolic 105–120; BP diastolic 61–76; PULSE 60–78; RESP 14–20; TEMP 98.1–98.5; O2SAT 91–99
[2025-03-23 07:20] LABS: Anion Gap 12 (5-15); Carbon Dioxide 28 mmol/L (20-31); Sodium 138 mmol/L (136-145)
[2025-03-23 07:21] LABS: Calcium 9.6 mg/dL (8.7-10.4)
[2025-03-23 07:26] LABS: BUN/Creatinine Ratio 13.3 (10.0-20.0); Blood Urea Nitrogen 14 mg/dL (9-23)
[2025-03-23 07:29] LABS: Chloride 98 mmol/L (98-107); Glucose 112 mg/dL (74-106); Potassium 3.3 mmol/L (3.5-5.1)
--- NOTE | 2025-03-23 15:01 | DVHPN2 ---
Subjective Patient reports that he is feeling better. Continues to have dyspnea with coughing Reviewed: Care Plan, H&P, Labs, Medications, Previous Orders Changes from previous H/P or p: No Changes Eyes: No Pain, No Vision change, No Conjunctivae inflammation, No Eyelid inflammation, No Other, No Redness ENT: No Ear pain, No Ear discharge, No Nose pain, No Nose discharge, No Nose congestion, No Mouth pain, No Mouth swelling, No Throat pain, No Throat swelling, No Other Cardiovascular: No Chest Pain, No Palpitations, No Orthopnea, No Paroxysmal Noc. Dyspnea, No Edema, No Lt Headedness, No Other Respiratory: Cough; No Dry; Shortness of breath, SOB with excertion; No Wheezing, No Hemoptysis, No Pleuritic Pain; Sputum (yellow); No Other Gastrointestinal: No Nausea, No Vomiting, No Abdominal Pain, No Diarrhea, No Constipation, No Melena, No Hematochezia, No Other Genitourinary: No Dysuria, No Frequency, No Incontinence, No Hematuria, No Retention, No Other Musculoskeletal: No other, No neck pain, No shoulder pain, No arm pain, No back pain, No hand pain, No leg pain, No foot pain Skin: No Rash, No Lesions, No Jaundice, No Bruising, No Other Objective Vitals Vital Signs Date Time Temp Pulse Resp B/P (MAP) Pulse Ox O2 Delivery O2 Flow Rate FiO2 03/23/25 12:17 98.2 73 18 117/76 (90) 93 98.2 03/23/25 10:00 Room Air* 0 21 Intake/Output Intake and Output 03/23/25 07:00 Intake Total 1752.5 ml Balance 1752.5 ml Intake Oral 1340 ml IV Total 412.5 ml # Voids 7 # Bowel Movements 1 General Appearance: Alert, Oriented X3, Cooperative, No acute distress HEENT: Atraumatic, PERRLA Lungs: Clear to auscultation, Normal air movement Cardiovascular: Normal S1, Normal S2 Abdomen: Normal bowel sounds, Soft, No tenderness, No hepatospenomegaly Musculoskeletal: Normal sensory function, Normal motor function Skin: Dry, Intact Psych/Mental Status: Mental status NL, Mood NL Medications Current Medications Medications Dose Ordered Sig/Gabriela Route Start Time Stop Time Status Last Admin Dose Admin Ondansetron HCl 4 mg Q4HP PRN IV 03/19/25 10:15 Morphine Sulfate 2 mg Q4HPRN PRN IV 03/19/25 10:15 UNV Morphine Sulfate 2 mg Q30M PRN IV 03/19/25 10:15 UNV Acetaminophen/ Hydrocodone Bitart 1 tab Q4HP PRN PO 03/19/25 10:15 Docusate Sodium 100 mg BIDPRN PRN PO 03/19/25 10:15 Acetaminophen 650 mg Q6HP PRN PO 03/19/25 10:15 Nitroglycerin 0.4 mg Q5MINP PRN SL 03/19/25 10:15 Patient Own Medication 1 tab DAILY PO 03/20/25 10:00 UNV Atorvastatin Calcium 40 mg HS PO 03/19/25 22:00 03/22/25 21:09 40 MG Morphine Sulfate 2 mg Q4HPRN PRN IV 03/19/25 11:00 Morphine Sulfate 2 mg Q30M PRN IV 03/19/25 11:00 Ciprofloxacin HCl 1 drop Q4HWA EACHEYE 03/19/25 18:00 03/29/25 17:59 03/23/25 13:17 1 DROP Guaifenesin/ Dextromethorphan 10 ml Q4HP PRN PO 03/19/25 17:45 03/22/25 12:06 10 ML Throat Lozenges 1 jackie Q2HP PRN MT 03/19/25 17:45 Albuterol 2.5 mg Q6HWA NEB 03/20/25 18:00 03/23/25 11:43 2.5 MG Ipratropium [place] 0.5 mg Q6HWA NEB 03/20/25 18:00 03/23/25 11:42 0.5 MG Fluconazole 100 ml @ 100 mls/hr 10,11 IV 03/22/25 10:00 03/23/25 12:02 100 MLS/HR Levofloxacin/ Dextrose 100 ml @ 100 mls/hr DAILY@1200 IV 03/22/25 12:00 03/23/25 13:17 100 MLS/HR Laboratory Results Laboratory Tests 03/22/25 06:18 03/23/25 06:15 Chemistry Test 03/23/25 06:15 Calcium Level 9.6 mg/dL (8.7-10.4) Urinalysis Test 03/20/25 06:30 Urine Color Yellow (Yellow) Urine Clarity Clear (Clear) Urine pH 5.0 (5.0-9.0) Urine Specific [place] 1.019 (1.001-1.035) Urine Protein Trace (Negative) H Urine Ketones Negative (Negative) Urine Blood Negative /uL (Negative) Urine Nitrite Negative (Negative) Urine Bilirubin Negative (Negative) Urine Urobilinogen Normal mg/dL (Negative) Urine Leukocyte Esterase Negative /uL (Negative) Urine RBC 1 /hpf (0 - 3) Urine Microscopic WBC 2 /HPF (0-3) Urine Squamous Epithelial Cells Few /hpf (<5) Urine Bacteria None seen /hpf (None Seen) Urine Hyaline Casts Few /lpf (0 - 2) Urine Glucose Normal mg/dL (Normal) Microbiology Microbiology Date/Time Source Procedure Growth Status 03/20/25 06:30 Sputum Gram Stain - Final Complete 03/20/25 06:30 Sputum Respiratory Culture - Final Complete 03/19/25 07:53 Blood Blood Culture - Preliminary NO GROWTH AFTER 72 HOURS OF INCUBATION. Resulted Labs and/or images reviewed: Labs reviewed by me, Image(s) reviewed by me Assessment/Plan Assessment/Plan Impression: -acute hypoxic respiratory failure -obesity -Acute renal failure,? Vasomotor nephropathy -bilateral pneumonia, atypical, rule out Legionella, valley fever -primary hypertension Plan: Events: No events overnight. White blood cell count with minor increase continues to be on room air -Legionella, valley fever send out pending -continue current antimicrobials -bronchodilators as needed -p.r.n. antihypertensives -repeat labs in a.m. Total time spent with patient discussing and formulating plan of care: 35 minutes. This medical document was created using an electronic medical record system with [employer] dictation system. Although this document has been carefully reviewed, there may still be some phonetic and typographical errors. These areas are purely typographical due to imperfections of the software programs, and do not reflect any compromise in the patient's medical care. Plan discussed with: Patient, Other (RN) My Orders Orders - NAZ CAMPBELL NP Procedure Category Date Status Time Basic Metabolic Panel LAB 03/24/25 Verified 04:00 Complete Blood Count LAB 03/24/25 Verified 04:00 Date of Service: Mar 23, 2025 Billing Provider: NAZ CAMPBELL NP Common Visit Codes: [id number] INP/OBS CARE(HIGH) NAZ CAMPBELL NP Mar 23, 2025 15:01
[2025-03-24] VITALS (13 sets, daily range): BP systolic 101–124; BP diastolic 63–81; PULSE 58–70; RESP 16–18; TEMP 96.7–98.8; O2SAT 94–100
[2025-03-24 06:39] LABS: Basophils # (auto) 0.1 10 ^3/uL (0-0.2); Basophils % (auto) 0.4 % (0.0-2.0); Eosinophils # (auto) 0.3 10 ^3/uL (0-0.8); Eosinophils % (auto) 2.4 % (0.0-7.0); Hematocrit 35.5 % (41.0-53.0); Hemoglobin 12.2 g/dL (13.5-17.5); Lymphocytes # (auto) 1.9 10 ^3/uL (0.4-5.4); Lymphocytes % (auto) 14.9 % (10.0-50.0); Mean Corpuscular Hgb Conc. 34.2 g/dL (32.0-36.0); Mean Corpuscular Volume 87.7 fL (80.0-100.0); Monocytes # (auto) 1.2 10 ^3/uL (0-1.3); Monocytes % (auto) 9.8 % (0.0-12.0); Neutrophils # (auto) 9.2 10 ^3/uL (1.6-8.6); Neutrophils % (auto) 72.5 % (37.0-80.0); Platelet Count (auto) 448 10^3/uL (140-450); Red Blood Cells 4.05 10^6/uL (4.5-5.90); Red Cell Distribution Width 13.4 % (11.8-14.3); White Blood Cell 12.7 10^3/uL (4.4-10.8)
[2025-03-24 06:51] LABS: Anion Gap 12 (5-15); Calcium 9.6 mg/dL (8.7-10.4); Carbon Dioxide 28 mmol/L (20-31); Chloride 98 mmol/L (98-107); Sodium 138 mmol/L (136-145)
[2025-03-24 06:53] LABS: Potassium 3.3 mmol/L (3.5-5.1)
[2025-03-24 06:57] LABS: BUN/Creatinine Ratio 15.3 (10.0-20.0); Blood Urea Nitrogen 17 mg/dL (9-23)
[2025-03-24 07:00] LABS: Glucose 111 mg/dL (74-106)
[2025-03-24] MEDS: POTASSIUM EFFERVESENT TAB 25 MEQ PO ONE (10:34)
--- NOTE | 2025-03-24 10:42 | DVH ---
CHEST RADIOGRAPH Indication: pna Technique: Single frontal view of the chest was obtained COMPARISON: XY CHEST PORTABLE on DOS: 03/19/25 FINDINGS: Lines and Tubes: None Lungs: Clear Pleura: No effusion. No pneumothorax. Cardiomediastinal contours: Unremarkable Bones: Unremarkable IMPRESSION: No acute disease.
--- NOTE | 2025-03-24 14:48 | DVHPN2 ---
Subjective Patient reports that he is feeling better. Continues to have dyspnea with coughing Reviewed: Care Plan, H&P, Labs, Medications, Previous Orders Changes from previous H/P or p: No Changes Eyes: No Pain, No Vision change, No Conjunctivae inflammation, No Eyelid inflammation, No Other, No Redness ENT: No Ear pain, No Ear discharge, No Nose pain, No Nose discharge, No Nose congestion, No Mouth pain, No Mouth swelling, No Throat pain, No Throat swelling, No Other Cardiovascular: No Chest Pain, No Palpitations, No Orthopnea, No Paroxysmal Noc. Dyspnea, No Edema, No Lt Headedness, No Other Respiratory: Cough; No Dry; Shortness of breath, SOB with excertion; No Wheezing, No Hemoptysis, No Pleuritic Pain; Sputum (yellow); No Other Gastrointestinal: No Nausea, No Vomiting, No Abdominal Pain, No Diarrhea, No Constipation, No Melena, No Hematochezia, No Other Genitourinary: No Dysuria, No Frequency, No Incontinence, No Hematuria, No Retention, No Other Musculoskeletal: No other, No neck pain, No shoulder pain, No arm pain, No back pain, No hand pain, No leg pain, No foot pain Skin: No Rash, No Lesions, No Jaundice, No Bruising, No Other Objective Vitals Vital Signs Date Time Temp Pulse Resp B/P (MAP) Pulse Ox O2 Delivery O2 Flow Rate FiO2 03/24/25 13:00 98.0 58 18 102/71 (81) 94 98.0 03/24/25 11:36 Room Air 0.0 03/24/25 11:36 21 Intake/Output Intake and Output 03/24/25 07:00 Intake Total 1560 ml Output Total 875 ml Balance 685 ml Intake Oral 1260 ml IV Total 300 ml Output Urine Total 875 ml # Voids 2 # Bowel Movements 1 General Appearance: Alert, Oriented X3, Cooperative, No acute distress HEENT: Atraumatic, PERRLA Lungs: Clear to auscultation, Normal air movement Cardiovascular: Normal S1, Normal S2 Abdomen: Normal bowel sounds, Soft, No tenderness, No hepatospenomegaly Musculoskeletal: Normal sensory function, Normal motor function Skin: Dry, Intact Psych/Mental Status: Mental status NL, Mood NL Medications Current Medications Medications Dose Ordered Sig/Gabriela Route Start Time Stop Time Status Last Admin Dose Admin Ondansetron HCl 4 mg Q4HP PRN IV 03/19/25 10:15 Morphine Sulfate 2 mg Q4HPRN PRN IV 03/19/25 10:15 UNV Morphine Sulfate 2 mg Q30M PRN IV 03/19/25 10:15 UNV Acetaminophen/ Hydrocodone Bitart 1 tab Q4HP PRN PO 03/19/25 10:15 Docusate Sodium 100 mg BIDPRN PRN PO 03/19/25 10:15 Acetaminophen 650 mg Q6HP PRN PO 03/19/25 10:15 Nitroglycerin 0.4 mg Q5MINP PRN SL 03/19/25 10:15 Patient Own Medication 1 tab DAILY PO 03/20/25 10:00 UNV Atorvastatin Calcium 40 mg HS PO 03/19/25 22:00 03/23/25 22:01 40 MG Morphine Sulfate 2 mg Q4HPRN PRN IV 03/19/25 11:00 Morphine Sulfate 2 mg Q30M PRN IV 03/19/25 11:00 Ciprofloxacin HCl 1 drop Q4HWA EACHEYE 03/19/25 18:00 03/29/25 17:59 03/24/25 14:00 1 DROP Guaifenesin/ Dextromethorphan 10 ml Q4HP PRN PO 03/19/25 17:45 03/24/25 10:08 10 ML Throat Lozenges 1 jackie Q2HP PRN MT 03/19/25 17:45 Albuterol 2.5 mg Q6HWA NEB 03/20/25 18:00 03/24/25 11:35 2.5 MG Ipratropium [place] 0.5 mg Q6HWA NEB 03/20/25 18:00 03/24/25 11:35 0.5 MG Fluconazole 100 ml @ 100 mls/hr 10,11 IV 03/22/25 10:00 03/24/25 11:00 100 MLS/HR Levofloxacin/ Dextrose 100 ml @ 100 mls/hr DAILY@1200 IV 03/22/25 12:00 03/24/25 13:22 100 MLS/HR Laboratory Results Laboratory Tests 03/24/25 06:04 Chemistry Test 03/24/25 06:04 Calcium Level 9.6 mg/dL (8.7-10.4) Magnesium Level 2.0 mg/dL (1.6-2.6) Urinalysis Test 03/20/25 06:30 Urine Color Yellow (Yellow) Urine Clarity Clear (Clear) Urine pH 5.0 (5.0-9.0) Urine Specific [place] 1.019 (1.001-1.035) Urine Protein Trace (Negative) H Urine Ketones Negative (Negative) Urine Blood Negative /uL (Negative) Urine Nitrite Negative (Negative) Urine Bilirubin Negative (Negative) Urine Urobilinogen Normal mg/dL (Negative) Urine Leukocyte Esterase Negative /uL (Negative) Urine RBC 1 /hpf (0 - 3) Urine Microscopic WBC 2 /HPF (0-3) Urine Squamous Epithelial Cells Few /hpf (<5) Urine Bacteria None seen /hpf (None Seen) Urine Hyaline Casts Few /lpf (0 - 2) Urine Glucose Normal mg/dL (Normal) Microbiology Microbiology Date/Time Source Procedure Growth Status 03/20/25 06:30 Sputum Gram Stain - Final Complete 03/20/25 06:30 Sputum Respiratory Culture - Final Complete 03/19/25 07:53 Blood Blood Culture - Final NO GROWTH AFTER 5 DAYS OF INCUBATION. Complete Labs and/or images reviewed: Labs reviewed by me, Image(s) reviewed by me Assessment/Plan Assessment/Plan Impression: -acute hypoxic respiratory failure -obesity -Acute renal failure,? Vasomotor nephropathy -bilateral pneumonia, atypical, rule out Legionella, valley fever -primary hypertension Plan: Events: No events overnight. White blood cell count with minor increase continues to be on room air -Legionella, valley fever send out pending -potassium replacement -continue current antimicrobials -bronchodilators as needed -p.r.n. antihypertensives -repeat labs in a.m. Total time spent with patient discussing and formulating plan of care: 35 minutes. This medical document was created using an electronic medical record system with [employer] dictation system. Although this document has been carefully reviewed, there may still be some phonetic and typographical errors. These areas are purely typographical due to imperfections of the software programs, and do not reflect any compromise in the patient's medical care. Plan discussed with: Patient, Other (RN) My Orders Orders - NAZ CAMPBELL DRAG SAWYER Procedure Category Date Status Time Chest Xray 1 View XY 03/24/25 Resulted 09:49 Date of Service: Mar 24, 2025 Billing Provider: NAZ CAMPBELL NP Common Visit Codes: [id number] INP/OBS CARE(HIGH) NAZ CAMPBELL NP Mar 24, 2025 14:48
[2025-03-25] VITALS (10 sets, daily range): BP systolic 104–113; BP diastolic 66–78; PULSE 62–98; RESP 16–18; TEMP 98.2–98.3; O2SAT 95–100
[2025-03-25 07:07] LABS: Coccidioides CF Antibody <1:2 (<1:2)
[2025-03-25] MEDS ORDERED: LEVO500T91 PO ×2 (11:16→13:42)
--- NOTE | 2025-03-25 11:38 | DVHDS2 ---
Discharge Summary Date of Admission Mar 19, 2025 at 09:57 Date of Discharge: Mar 25, 2025 Admitting Diagnosis Suspected sepsis Labs/Diagnostic Data: Laboratory Results Test 03/24/25 06:04 03/22/25 06:18 03/20/25 13:00 03/20/25 06:30 White Blood Count 12.7 10^3/uL (4.4-10.8) Red Blood Count 4.05 10^6/uL (4.5-5.90) Hemoglobin 12.2 g/dL (13.5-17.5) Hematocrit 35.5 % (41.0-53.0) Mean Corpuscular Volume 87.7 fL (80.0-100.0) Mean Corpuscular Hemoglobin 30.0 pg (28.0-32.0) Mean Corpuscular Hemoglobin Concent 34.2 g/dL (32.0-36.0) Red Cell Distribution Width 13.4 % (11.8-14.3) Platelet Count 448 10^3/uL (140-450) Mean Platelet Volume 7.7 fL (6.9-10.8) Neutrophils (%) (Auto) 72.5 % (37.0-80.0) Lymphocytes (%) (Auto) 14.9 % (10.0-50.0) Monocytes (%) (Auto) 9.8 % (0.0-12.0) Eosinophils (%) (Auto) 2.4 % (0.0-7.0) Basophils (%) (Auto) 0.4 % (0.0-2.0) Neutrophils # (Auto) 9.2 10 ^3/uL (1.6-8.6) Lymphocytes # (Auto) 1.9 10 ^3/uL (0.4-5.4) Monocytes # (Auto) 1.2 10 ^3/uL (0-1.3) Eosinophils # (Auto) 0.3 10 ^3/uL (0-0.8) Basophils # (Auto) 0.1 10 ^3/uL (0-0.2) Nucleated Red Blood Cells 0.0 % Sodium Level 138 mmol/L (136-145) Potassium Level 3.3 mmol/L (3.5-5.1) Chloride Level 98 mmol/L (98-107) Carbon Dioxide Level 28 mmol/L (20-31) Anion Gap 12 (5-15) Blood Urea Nitrogen 17 mg/dL (9-23) Creatinine 1.11 mg/dL (0.700-1.30) Glomerular Filtration Rate Calc 71 mL/min (>90) BUN/Creatinine Ratio 15.3 (10.0-20.0) Serum Glucose 111 mg/dL (74-106) Calcium Level 9.6 mg/dL (8.7-10.4) Magnesium Level 2.0 mg/dL (1.6-2.6) Coccidioides Antibody (Comp Fix) <1:2 (<1:2) Urine Color Yellow (Yellow) Urine Clarity Clear (Clear) Urine pH 5.0 (5.0-9.0) Urine Specific Jackson 1.019 (1.001-1.035) Urine Protein Trace (Negative) Urine Ketones Negative (Negative) Urine Blood Negative /uL (Negative) Urine Nitrite Negative (Negative) Urine Bilirubin Negative (Negative) Urine Urobilinogen Normal mg/dL (Negative) Urine Leukocyte Esterase Negative /uL (Negative) Urine RBC 1 /hpf (0 - 3) Urine Microscopic WBC 2 /HPF (0-3) Urine Squamous Epithelial Cells Few /hpf (<5) Urine Bacteria None seen /hpf (None Seen) Urine Hyaline Casts Few /lpf (0 - 2) Urine Glucose Normal mg/dL (Normal) Test 03/20/25 06:04 03/19/25 10:30 03/19/25 09:54 03/19/25 07:53 Total Bilirubin 0.7 mg/dL (0.2-1.0) Aspartate Amino Transferase (AST) 29 U/L (13-40) Alanine Aminotransferase (ALT) 33 U/L (7-40) Alkaline Phosphatase 181 U/L (46-116) Total Protein 7.4 g/dL (5.7-8.2) Albumin 4.3 g/dL (3.2-4.8) Influenza Type A Antigen Negative (Negative) Influenza Type B Antigen Negative (Negative) SARS-CoV-2 Antigen (Rapid) Negative (NEGATIVE) Lactic Acid Level 2.2 mmol/L (0.4-2.0) Prothrombin Time 11.0 sec (9.3-11.8) Prothrombin Time INR 1.04 (0.9-1.15) Activated Partial Thromboplast Time 26.8 SEC (24.5-34.5) Hemoglobin A1c 5.7 % A1C (<5.7) Other Laboratory Tests 03/24/25 06:04 Brief Hx & Hospital Course: History of Present Illness Mendel Harrington is a 69-uear-old male with past medication history of hypertension, and hyperlipidemia who came to the hospital for shortness of breath. Patient states he had an upper respiratory tract infection about a week ago. He was given antibiotics, and states he was feeling a little better, but then worsened. He states he fatigue and malaise have been debilitating the last few days. Also states he has had shortness of breath, cough with yellow phlegm, headache, and sore throat. Patient states he drinks about 5 beers/day. His last beer was last Wednesday03/12/2025 due to him being sick. Patient lives in [place]. He is in [place] for work on a 4 year contract. His primary care provider remains in [place]. Course of hospitalization: Patient was started on antifungal as Diflucan as well as Levaquin, to cover atypical pneumonia as found on CT scan. Patient was tested for valley fever, with Coccidioides Ab found to be negative. Patient was weaned off of oxygen. Patient had potassium replete for persistent hypokalemia. Patient will be discharged home as instructed to follow up with his PCP back in [facility] on his next trip back. Patient will be provided a copy of CT scan is recommended to have follow up CT in one month. While in [place], patient will follow up with the discharge Clinic in one week. Patient will be continued on Levaquin 500 mg p.o. daily for additional eight days. Patient will go back to work in one week. He is agreeable with discharge plan. All questions answered for Physical examination General: Alert and Oriented x3. No acute distress. Well-nourished. Obese Eyes: EOMI. Anicteric. HENT: Moist mucous membranes. Lungs: Clear to auscultation bilaterally. No accessory muscle use. Cardiovascular: Regular rate and rhythm. No murmur. No JVD. Abdomen: Soft, non-tender and non-distended. No palpable masses. Extremities: No edema. Non-tender. Skin: No rashes or lesions. Warm. Neurologic: No focal neurological deficits. CN II-XII grossly intact, but not individually tested. Psychiatric: Cooperative. Appropriate mood and affect. Total time spent with patient discussing and formulating plan of care: 35 minutes. This medical document was created using an electronic medical record system with [employer] dictation system. Although this document has been carefully reviewed, there may still be some phonetic and typographical errors. These areas are purely typographical due to imperfections of the software programs, and do not reflect any compromise in the patient's medical care. Condition at Discharge: Fair Final Diagnosis/Problems List Community acquired pna, atypical, probable gram positive or gram negative etiology Secondary diagnosis: -acute hypoxic respiratory failure -obesity -Acute renal failure,? Vasomotor nephropathy -ruled out valley fever and Legionella disease -primary hypertension Discharge Disposition: Home Discharge Instruct/Medications Diet: Cardiac 2g Na,low cholest Activity: No Restrictions, As Tolerated Follow Up/Referral: DC clinic in [address] of chest in 1 month Medications: Continue all home medications Levaquin 500mg po daily x 8 more days 36 Discharge Statement: "Patient was advised to return to the ER or call 911 if any headaches, dizziness, shortness of breath, chest pain, abdominal pain, bleeding, fevers, or worsening of medical condition. Patient was counseled about treatment plan, medications, possible side effects, patientverbalized understanding. All questions were answered to the best of my ability. This discharge took greater then 30 minutes in planning, reviewing documentation, counseling the patient, and discussing with other team members." ASSESSMENT ASSESSMENT Assessment Community acquired pna, atypical, probable gram positive or gram negative etiology Date of Service: Mar 25, 2025 Billing Provider: NZA CAMPBELL NP Common Visit Codes: [id number] INP/OBS CARE(HIGH) NAZ CAMPBELL NP Mar 25, 2025 11:38
== END 2025-03-25 15:20 | disposition home or self-care (01) | DRG 177 ==
LOC: ER 07:06 → OVERFLOW 09:57 → ER 10:00 → TELE-EAST 13:30 → EAST 03-21 15:25
PROVIDERS: ADMIT Nurse Practitioner Acute Care; ATTEND Nurse Practitioner Acute Care
DX: J15.69 Pneumonia due to other Gram-negative bacteria (principal); J96.01 Acute respiratory failure with hypoxia; N17.0 Acute kidney failure with tubular necrosis; E87.20 Acidosis, unspecified; J15.9 Unspecified bacterial pneumonia; E66.9 Obesity, unspecified; Z20.822 Contact with and (suspected) exposure to COVID-19; E78.5 Hyperlipidemia, unspecified; E87.6 Hypokalemia; I10 Essential (primary) hypertension; Z90.49 Acquired absence of other specified parts of digestive tract; Z68.36 Body mass index [BMI] 36.0-36.9, adult
CPT/HCPCS: 36415; 71045; 71046; 71250; 80048; 80053; 81001; 83036; 83605; 83735; 85025; 85610; 85730; 86635; 87040; 87070; 87205; 87278; 87426; 87804; 93005; 93306; 94640; 96361; 96365; 99291; G0378; J1450; J1956; J2003